=== PATIENT | male | born 1980 | race Caucasian/White ===

== ENCOUNTER 2023-02-11 19:13 | Emergency (ER) | payer BC | END 2023-02-11 19:30 | disposition home or self-care (01) | LOC: MADERS 19:13 | DX: S61.101A Unspecified open wound of right thumb with damage to nail, initial encounter (principal); E78.00 Pure hypercholesterolemia, unspecified; W23.0XXA Caught, crushed, jammed, or pinched between moving objects, initial encounter | CPT/HCPCS: 99283 ==